=== PATIENT | male | born 2000 | race Caucasian/White ===

== ENCOUNTER 2019-07-03 16:42 | Emergency (ER) | payer OTHER ==
[~2019-07-03] VITALS: Ht 175.3 cm; Wt 54.4 kg
[2019-07-03] MEDS ORDERED: PROCTOFOAM-HC 110 GM TOP (17:28)
[2019-07-03] MEDS ORDERED: CLEOCIN HCL300 MG PO (17:28)
[2019-07-03 17:47] VITALS: BP 146/91
== END 2019-07-03 17:40 | disposition home or self-care (01) ==
LOC: M.ERS 16:42
DX: S31.831A Laceration without foreign body of anus, initial encounter (principal); L05.91 Pilonidal cyst without abscess; X58.XXXA Exposure to other specified factors, initial encounter; Y93.89 Activity, other specified; Y92.89 Other specified places as the place of occurrence of the external cause; Y99.8 Other external cause status

== ENCOUNTER 2019-07-05 11:19 | Inpatient (IN) | payer OTHER ==
[~2019-07-05] VITALS: Ht 175.3 cm; Wt 102.1 kg
[~2019-07-05 11:19] MED LIST: CLEOCIN HCL300 MG PO; PROCTOFOAM-HC 110 GM TOP
[2019-07-05 11:28] VITALS: BP 154/93
[2019-07-05 12:18] LABS: ABSOLUTE EOSINOPHILS 0.1 thou/uL (0.0-0.7); ABSOLUTE LYMPHOCYTES 1.7 thou/uL (0.8-5.3); ABSOLUTE MONOCYTES 1.4 thou/uL (0.0-1.2); ABSOLUTE NEUTROPHILS 8.5 thou/uL (1.6-8.1); BASOPHILS 0.2 %; EOSINOPHILS 0.5 %; HEMATOCRIT 40.6 % (42.0-52.0); HEMOGLOBIN 13.7 gm/dL (14.0-18.0); LYMPHOCYTES 14.8 %; MCH 28.7 pg (26.0-34.0); MCHC 33.7 g/dL (28.0-37.0); MCV 85.1 fL (80.0-100.0); MONOCYTES 11.6 %; MPV 8.7 fl. (7.2-11.1); NUCLEATED RBCS 0 /100WBC; PLATELET COUNT* 318 thou/uL (150-400); POLYS 72.9 %; RBC 4.76 mil/uL (4.50-6.00); RDW-CV 12.9 % (10.5-14.5); WBC 11.6 thou/uL (4.0-11.0)
[2019-07-05 12:28] LABS: CREATININE 1.1 mg/dL (0.6-1.3); POTASSIUM 3.8 mmol/L (3.5-5.1)
[2019-07-05 12:32] LABS: ALBUMIN 3.6 g/dL (3.4-5.0); TOTAL BILIRUBIN 0.6 mg/dL (<0.1-1.0); TOTAL PROTEIN 8.5 g/dL (6.4-8.2)
--- NOTE | 2019-07-05 13:08 | NUR ---
PARKER NOTIFIED UPON PT RETURN FROM CT.PT CONNECTED TO PULSE OX AND HEART MONITOR HE WAS PRIOR TO CT
[2019-07-05 17:00] VITALS: BP 128/78
--- NOTE | 2019-07-05 18:06 | NUR ---
PT ADMITTED FROM ER WITH RECTAL ABCESS. SEEN BY SURGERY,DR DUMONT. IVF INFUSING. PRN PAIN MEDICATION GIVEN. ORIENTED TO ROOM, CALL LIGHT, AND BED CONTROL.
[2019-07-05 19:40] VITALS: BP 121/73
[2019-07-06 00:22] VITALS: BP 110/74
[2019-07-06 01:50] LABS: URINE BILIRUBIN NEGATIVE (Negative); URINE BLOOD NEGATIVE (Negative); URINE CLARITY CLEAR; URINE COLOR YELLOW; URINE GLUCOSE-RANDOM NEGATIVE (Negative); URINE KETONES NEGATIVE (Negative); URINE LEUKOCYTES-REFLEX NEGATIVE (Negative); URINE NITRITE-REFLEX NEGATIVE (Negative); URINE PROTEIN NEGATIVE (Negative); URINE UROBILINOGEN 0.2 E.U./dl (0.2-1.0)
[2019-07-06 04:27] VITALS: BP 118/68
[2019-07-06 05:20] LABS: HEMATOCRIT 37.3 % (42.0-52.0); HEMOGLOBIN 12.5 gm/dL (14.0-18.0); MCH 28.5 pg (26.0-34.0); MCHC 33.4 g/dL (28.0-37.0); MCV 85.3 fL (80.0-100.0); MPV 8.7 fl. (7.2-11.1); RBC 4.38 mil/uL (4.50-6.00); RDW-CV 12.8 % (10.5-14.5); WBC 14.1 thou/uL (4.0-11.0)
--- NOTE | 2019-07-06 05:29 | NUR ---
RECEIVED REPORT AND ASSUMED CARE OF PATIENT AT 1900. NO ACUTE CHANGES THROUGH SHIFT. PICTURES TAKEN OF ABSCESS ON RECTUM AND SWELLING AND ABSCESS BELOW SCROTUM. PICTURES IN CHART. PT CONTINUES TO REPORT SEVERE PAIN. ALL ROUNDINGS COMPLETED, ALL NEEDS MET, FULL ASSESSMENT COMPLETED CHARTED. PERSONAL ITEMS AND CALL LIGHT WITHIN REACH.
[2019-07-06 05:39] LABS: CALCIUM 8.4 mg/dL (8.5-10.1); CREATININE 1.3 mg/dL (0.6-1.3); MAGNESIUM 1.9 mg/dL (1.8-2.4); POTASSIUM 3.6 mmol/L (3.5-5.1)
[2019-07-06 07:44] VITALS: BP 130/77
--- NOTE | 2019-07-06 08:19 | NUR ---
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
[2019-07-06 11:56] VITALS: BP 119/63
--- NOTE | 2019-07-06 15:13 | NUR ---
Pt is A&O. Resides at home with parents during the summer, Pt is a student. No DME. No hx of HH or SNF. Per , Pt will be inpt for a few more days, ID following.
[2019-07-06 15:56] VITALS: BP 131/72
[2019-07-07] VITALS: BP 121/65; BP 134/75
[2019-07-07 05:15] LABS: HEMATOCRIT 39.2 % (42.0-52.0); HEMOGLOBIN 13.1 gm/dL (14.0-18.0); MCH 28.3 pg (26.0-34.0); MCHC 33.4 g/dL (28.0-37.0); MCV 84.9 fL (80.0-100.0); MPV 8.7 fl. (7.2-11.1); RBC 4.61 mil/uL (4.50-6.00); WBC 11.8 thou/uL (4.0-11.0)
[2019-07-07 05:27] LABS: CALCIUM 8.7 mg/dL (8.5-10.1); CREATININE 1.1 mg/dL (0.6-1.3); MAGNESIUM 2.1 mg/dL (1.8-2.4); PHOSPHORUS* 4.2 mg/dL (2.5-4.9); POTASSIUM 3.9 mmol/L (3.5-5.1); TOTAL BILIRUBIN 0.4 mg/dL (<0.1-1.0); TOTAL PROTEIN 8.1 g/dL (6.4-8.2)
--- NOTE | 2019-07-07 06:14 | NUR ---
RECEIVED REPORT AND ASSUMED CARE OF PATIENT AT 1900. VSS. NO ACUTE CHANGES THROUGHOUT SHIFT. ALL ROUNDINGS COMPLETED, ALL NEEDS MET, FULL ASSESSMENT COMPLETED CHARTED. CALL LIGHT AND PERSONAL ITEMS IN REACH.
[2019-07-07 07:45] VITALS: BP 125/62
--- NOTE | 2019-07-07 08:18 | NUR ---
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, TRACING SR- UPON ASSESSMENT PT NOTED TO BE RESTING IN BED, WATCHING TV- PT A&O X4- CONT OF BOWEL AND BLADDER- UP AD-VERÓNICA, STEADY GAIT NOTED- LCTA, RESP EVEN AND UN-LABORED- VSS, O2 SAT 97% ON RA- ABD SOFT/ROUND/NON-TENDER, BS X4 QUADS- LAST BM REPORTED X3 DAYS AGO, SCHEDULED STOOL SOFTNER GIVEN PRESCRIBED THIS AM- IV NOTED TO LEFT FA INTACT, IV ABT INFUSSING PRESCRIBED- PT MIKAYLA NPO FOR PLANNED I&D THIS AFTERNOON- PELVIS CT COMPLETED THIS AM WITH RESULTS NOTED IN MEDITECH- PRN HYDROCODONE GIVEN THIS AM AT 0814 FOR RECTAL PAIN- CALL LIGHT AND PERSONAL BELONGINGS WITH IN REACH- PT MAKES NEEDS KNOWN- ALL NEEDS MET AT THIS TIME-WCTM
--- NOTE | 2019-07-07 10:25 | NUR ---
Spoke with , Pt to surgery today. Anticipate dc in a few days. Pt may need HH for wound care. Following.
[2019-07-07 12:39] VITALS: BP 132/70
[2019-07-07 20:00] VITALS: BP 141/80
[2019-07-08] VITALS: BP 111/60
--- NOTE | 2019-07-08 02:57 | NUR ---
PT BACK FROM I&D. HYDROCODONE GIVEN. PT STATED ITCHING ON LOWER LEGS. BENADRYL GIVEN. PT REQUESTING AV IMPULSE BOOTS OFF. BOOTS OFF. PT GETTING OOB AND AMBULATING IN [facility]. PT STATES PAIN IS MUCH BETTER THAT BEFORE I&D. TELEMETRY SHOWS SR.
[2019-07-08 04:00] VITALS: BP 110/69
[2019-07-08 04:54] LABS: HEMOGLOBIN 12.7 gm/dL (14.0-18.0); MCH 29.2 pg (26.0-34.0); MCHC 34.4 g/dL (28.0-37.0); MCV 84.8 fL (80.0-100.0); MPV 8.6 fl. (7.2-11.1); RBC 4.36 mil/uL (4.50-6.00); RDW-CV 12.8 % (10.5-14.5); WBC 9.3 thou/uL (4.0-11.0)
[2019-07-08 04:59] LABS: CALCIUM 8.9 mg/dL (8.5-10.1); CREATININE 1.1 mg/dL (0.6-1.3); MAGNESIUM 2.3 mg/dL (1.8-2.4); POTASSIUM 4.2 mmol/L (3.5-5.1)
[2019-07-08 07:30] VITALS: BP 113/74
[2019-07-08] MEDS ORDERED: AUGMENTIN 875-1 EACH PO (11:38)
[2019-07-08] MEDS ORDERED: HYDROCODON-ACE1 EAC7 PO (11:38)
[2019-07-08 13:44] VITALS: BP 113/74
--- NOTE | 2019-07-08 15:04 | OP ---
[address] [address] OPERATIVE REPORT Name: SEVERIANO GARCIA Room: [address] M.R.#: [id number] Admission: 07/05/19 Attend Phys: January Amado MD Discharge: Date of : 89 Report #: [id number] THIS REPORT FOR: //name// cc: Jesse Juarez Chad W. DO ~ THIS REPORT FOR: //name// CC: Jesse Amado DICTATED BY: Hemanth Muñoz DO DATE OF SERVICE: 07/07/2019 PREOPERATIVE DIAGNOSIS: Perineal abscess. POSTOPERATIVE DIAGNOSIS: Perineal abscess. SURGEON: Kwabena Dunham DO CODER: Hemanth Muñoz DO, PGY-3 OPERATION PERFORMED: 1. Anal exam under anesthesia. 2. Incision and drainage of perineal abscess. ANESTHESIA: General and local. ESTIMATED BLOOD LOSS: 20. SPECIMENS REMOVED: None. COMPLICATIONS: None. FINDINGS: Normal external anal exam. No fistulous tracts. Induration along the left inferior gluteal fold. Area of drainage in the mid perineum with some purulence and blood noted. HISTORY OF PRESENT ILLNESS: The patient is a 19-year-old male who presented with perirectal pain and was found to have significant induration in his perirectal area with concern for abscess. We discussed incision and drainage in the OR under anesthesia. Risks, benefits, and alternatives discussed at length and he agreed to proceed with surgery. DESCRIPTION OF PROCEDURE: After consent was obtained, [place] [address] OPERATIVE REPORT Name: SEVERIANO GARCIA Room: [address] ..#: [id number] Admission: 07/05/19 Attend Phys: January Amado MD Discharge: Date of : 89 Report #: [id number] the operating room and placed in the lithotomy position. SCDs applied to bilateral lower extremities, safety belt placed across the patient's waist. Scheduled antibiotics were on board for the surgical prophylaxis. The patient underwent general LMA anesthesia without any complication. The patient was prepped and draped in the standard sterile fashion. Perianal area was inspected and there was no evidence of any fistula. There was induration along the left inferior gluteal fold and area of drainage in the mid- perineum. A 20-gauge needle was used in attempt to aspirate any purulent fluid; however, there was no large pocket of abscess that could be delineated. We then proceeded to make an incision over the perineum where there was fluctuance. Using a 15 blade, a 1.5 cm incision was made along the perineum. There was some small amount of puurulence and blood that was expressed from this area. Hemostat was used to break up loculations and there was some mild tracking along the perineum up towards the scrotum; however, it stopped before reaching the scrotal tissue. We then elected to make a counterincision about 1 inch below our initial incision and a Vitaliy drain was placed and secured with 1 stitch of 3-0 nylon to allow for further drainage of this area. At this point, surgical field was cleaned. All needle, instrument, and sponge counts were correct at the end of the case. The patient was awoken from general anesthesia and transferred to PACU in stable condition. <ELECTRONICALLY SIGNED> By: Kwabena Dunham DO 07/08/19 1504 1834 [id number] Dunham DO /nt
--- NOTE | 2019-07-08 16:18 | NUR ---
Pt discharged prior to this CM being able to discuss order for HH. CM left VM on Pt's mom's phone asking if they want HH. Pt's phone number on file was a non working number. Awaiting call back.
== END 2019-07-08 15:53 | disposition home health service (06) | DRG 394 ==
LOC: M.ERS 11:19 → M.2W 15:36 → M.TBA-ER 15:36 → M.2W 17:08
PROVIDERS: Personal Emergency Response Attendant; Surgery; ADMIT Internal Medicine
PROC: 0W9M0ZZ Drainage of Male Perineum, Open Approach (ICD-10-PCS; principal; 2019-07-07)
DX: K61.0 Anal abscess (principal); L03.315 Cellulitis of perineum; R65.10 Systemic inflammatory response syndrome (SIRS) of non-infectious origin without acute organ dysfunction; L05.01 Pilonidal cyst with abscess; F41.9 Anxiety disorder, unspecified; F32.9 Major depressive disorder, single episode, unspecified; E66.9 Obesity, unspecified; Z68.32 Body mass index [BMI] 32.0-32.9, adult

== ENCOUNTER 2021-02-16 13:28 | Emergency (ER) | payer OTHER ==
[~2021-02-16] VITALS: Ht 177.8 cm; Wt 99.8 kg
[~2021-02-16 13:28] MED LIST changes: +AUGMENTIN 875-1 EACH PO; +HYDROCODON-ACE1 EAC7 PO
[2021-02-16] MEDS ORDERED: PREDNISONE 20 M20 M1 PO (14:48)
[2021-02-16] MEDS ORDERED: TRIAMCINOLONE A80 G2 TOP (14:48)
[2021-02-16 15:02] VITALS: BP 152/97
--- NOTE | 2021-02-17 10:05 | EKG ---
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: WILI : 2000 Requested By: Jeremias Shaffer Order Number: [id number] MD: Kevin Canales Measurements Intervals [place] Rate: 66 P: 40 TX: 114 QRS: 51 QRSD: 93 T: 34 QT: 401 QTc: 421 Interpretive Statements Sinus rhythm Borderline short [place] interval No previous ECG available for comparison Electronically Signed On 02-17-2021 10:05:45 OUTSOLE TACKER by Kevin Canales [email or web address] <ELECTRONICALLY SIGNED> By: Kevin Canales MD, [facility] 02/17/21 1005 1514 1514 Kevin Canales MD, [facility] /EPI
== END 2021-02-16 15:02 | disposition home or self-care (01) ==
LOC: M.ERS 13:28
DX: L24.9 Irritant contact dermatitis, unspecified cause (principal)